=== PATIENT | female | born 1985 | race Two or more races ===

== ENCOUNTER → 2016-06-19 | Outpatient (CLI) | payer OTHER ==
--- NOTE | 2016-06-19 17:47 | REP ---
Soft-tissue neck ultrasound: History: Lipoma of the neck. Comparison: No other imaging. Findings: The patient reports a lump the size of a softball in the neck below the chin present since October 2015. Scanning in the posterior neck in the area of the palpable abnormality shows a 7.6 x 2.7 x 6.5 cm somewhat heterogeneous solid lesion essentially isoechoic to subcutaneous fat. This may reflect lipoma, but is nonspecific by ultrasound. Just inferior to the chin, the patient reports another mass, however, nothing cystic or solid is visible sonographically. There is a small normal appearing lymph node noted to the right of midline 1.4 cm in greatest diameter. Impression: Solid mass in the posterior neck compatible with but not specific for lipoma. Normal appearing lymph nodes seen. No other mass lesion noted. No cystic change is seen. Soft tissue CT scanning or MRI scanning would be more specific. Signed by Santhosh Abrams MD 06/19/2016 06:07 P
== END ==
LOC: M LRY 14:05
PROVIDERS: ATTEND Family Medicine
DX: R22.1 Localized swelling, mass and lump, neck (principal)

== ENCOUNTER → 2016-07-11 | Outpatient (CLI) | payer OTHER ==
--- NOTE | 2016-07-11 12:16 | REP ---
LUMBAR SPINE, FIVE VIEWS: HISTORY: Back pain. There is no acute fracture or subluxation. The L3-4 intervertebral disc is decreased in height consistent with disc degeneration. Osteophytes are present on L1 and L4. The facet joints are normal in appearance. There is an old compression fracture at the L1 vertebral body with minimal height loss. IMPRESSION: Degenerative change as described above. Signed by Steven Escamilla MD 07/11/2016 12:17 P
== END ==
LOC: M LRY 09:23
PROVIDERS: ATTEND Family Medicine
DX: M54.5 Low back pain (principal)

== ENCOUNTER → 2016-08-22 | Outpatient (REF) | payer OTHER ==
[~2016-08-22] MED LIST: ALBU17IN2 INH; FLUO20CA8 PO; TIZA4CAP3 PO; TOPA25TA10 PO
[2016-08-22 20:26] LABS: MEAN CORPUSCULAR HEMOGLOBIN 30.9 pg (27.0-33.0); RED CELL DISTRIBUTION WIDTH 13.1 % (11.5-14.5); WHITE BLOOD COUNT 9.3 K/mm3 (4.0-10.0)
[2016-08-22 20:30] LABS: FREE T4 0.94 NG/DL (0.76-1.46)
== END ==
LOC: M SFHCLERA 15:10
PROVIDERS: ATTEND Family Medicine
DX: R53.83 Other fatigue (principal)

== ENCOUNTER → 2016-08-27 | Day surgery (SDC) | payer OTHER ==
[~2016-08-27] VITALS: Ht 156.2 cm; Wt 76.7 kg
[~2016-08-27] MED LIST changes: +LIDOCAINE 2% INJ 100 MG/5 ML SDV (FOR ANES.) As Ordered ONE; +LIDOCAINE W/EPINEPHRINE 1% 20ML VIAL As Ordered ONE; +MIDAZOLAM INJ 2 MG/2 ML VIAL (J2250) As Ordered ONE; +PROPOFOL 200 MG/20 ML VIAL As Ordered ONE; +fentaNYL 100 MCG/2 ML INJECTION (J3010) As Ordered ONE
[2016-08-27] MEDS: LR 1,000 ML IV SCH ×2 (06:40→07:10)
[2016-08-27 09:40] VITALS: BP 138/90
--- NOTE | 2016-08-27 21:52 | RO ---
DATE OF PROCEDURE: 08/27/2016 PREOPERATIVE DIAGNOSIS: Posterior neck lipoma. POSTOPERATIVE DIAGNOSIS: Posterior neck lipoma. PROCEDURE: Excision of neck lipoma. SURGEON: Dr. Peyman Diaz [employer]GET[employer]: None. ANESTHESIA: IV sedation with 40 mL of 1% lidocaine with epinephrine local. COMPLICATIONS: None. INDICATIONS FOR PROCEDURE: The patient is a 30-year-old female who presents with a large posterior neck lipoma that was causing pain and discomfort. Recommendation to proceed with excision. Risks and benefits of procedure not limited to but including bleeding, infection, seroma formation and need further surgery were discussed in detail with the patient, informed was obtained and procedure was planned. DESCRIPTION OF PROCEDURE: The patient brought back to operating room seven, after sufficient sedation, the posterior neck was sterilely prepped and draped. Next, a time-out was done to confirm proper patient, proper procedure. Following that, local was injected in the skin and subcutaneous tissue surrounding the lesion. Next, a 6 cm incision was made with a [address] through the skin to the level of the subcutaneous tissues. Once the lipoma was reached, it was not encapsulated. It was carefully dissected free using electrocautery. Once the lipoma was removed intact, it measured 6 x 6 cm in size. The lipoma was then set aside. The skin incision was closed with interrupted #3-0 nylon sutures. Once the suture line was reapproximated, skin was washed with saline, 4 x 4 and tape were applied thus ending procedure.
== END ==
LOC: M SDC 05:49
PROVIDERS: ATTEND Surgery
DX: D17.0 Benign lipomatous neoplasm of skin and subcutaneous tissue of head, face and neck (principal); J45.909 Unspecified asthma, uncomplicated; F41.9 Anxiety disorder, unspecified; M54.5 Low back pain; Z72.0 Tobacco use; Z79.899 Other long term (current) drug therapy
CPT/HCPCS: 21552; 88304; J0690; J2250; J3010